=== PATIENT | male | born 1955 | race Caucasian/White ===

== ENCOUNTER 2016-10-08 06:14 | Day surgery (SDC) | payer OTHER ==
[2016-10-07 09:49] VITALS: BMI 58.2
--- NOTE | 2016-10-07 12:25 | HP ---
- Patient Scheduled date of Surgery: 10/08/16 Scheduled Surgical Procedure: Phacoemulsification and cataract extraction with PCIOL Affected Eye: Right Chief Complaint (Indication for surgery): Decreased vision affecting ADLs, Glare when driving at night - Ocular History Other Eye History: Other (lattice degeneration s/p focal retinopexy os, allergic conjunctivitis) Eye Medications: vigamox , ilevro Previous Eye Surgery: focal retinopexy os - Medical History Illnesses: Congestive Heart Failure, Hypertension, Diabetes, Other (CKD, BPH s/ p defibrillator) Current Medications: Ambulatory Orders Aspirin [ASA -] 81 mg PO DAILY 01/02/16 Atorvastatin Ca [Lipitor] 80 mg PO HS 01/02/16 Carvedilol [Coreg -] 37.5 mg PO BID 01/02/16 Cholecalciferol (Vitamin D3) [Vitamin D] 5,000 unit PO DAILY 01/02/16 Glimepiride 2 mg PO DAILY 01/02/16 Insulin Glargine,Hum.rec.anlog [Lantus Solostar PEN (NF)] 30 units SQ ACBK 01/01 Insulin Glargine,Hum.rec.anlog [Lantus Solostar PEN (NF)] 40 units SQ HS Liraglutide [Victoza -] 1.8 mg SQ ACDIN 01/02/16 Oxybutynin Chloride [Ditropan -] 5 mg PO HS 01/02/16 Tamsulosin HCl [Flomax] 0.4 mg PO DAILY 01/02/16 Torsemide [Demadex] 20 mg PO DAILY 01/02/16 Valsartan [Diovan] 160 mg PO DAILY 01/02/16 Torsemide [Demadex] 10 mg PO HS 02/20/16 Bupropion HCl [Wellbutrin Xl] 300 mg PO DAILY 10/07/16 Cyanocobalamin [Vitamin B12 -] 1,000 mcg PO DAILY 10/07/16 Escitalopram Oxalate [Lexapro -] 15 mg PO HS 10/07/16 Methylfolate 15,000 mg PO DAILY 10/07/16 Allergies/Adverse Reactions: Allergies Allergy/AdvReac Type Severity Reaction Status Date / Time Penicillins Allergy Intermediate Rash Verified 02/20/16 14:58 Ocular Examination - Best Corrected Visual Acuity Distance: Right eye: 20/50 Distance: Left eye: 20/30 - External/Slit Lamp Examination Abnormalities: stromal scar with NV - Intraocular Pressure Intraocular Pressure - Right eye: 15 Intraocular Pressure-Left eye: 15 - Lens Lens: 2+ NS - Vitreous/Retina Vitreous/Retina: C:D 0.4 m/v/p wnl - Special Examination M - Right eye: -9.00 M - Left eye: -6.00 K - Right eye: 41.75/42 K - Left eye: 42/42 AL - Right eye: 28.00 AL - Left eye: 27.27 IOL bag: +15.0 dhoya 251 for myopia IOL sulcus: +14.5 d hoya 231 IOL AC: 13.5 d MTA 4uo - Impression Impression: Cataract Right Eye - Plan Plan: Phacoemulsification and cataract extraction - IOL Right eye Post-hospital care will be provided in office on: 10/09/16
[~2016-10-08 06:14] MED LIST: ACETAMINOPHEN 325 MG TABLET (FP) PO PRN; TOBRAMYCIN/DEXAMETHASONE OPHTH. OINTMENT 1 TUBE TP ONE
[2016-10-08] MEDS ORDERED: MOXIFLOXACIN HCL 0.5% OPHTHALMIC 3 ML BOTTLE ONE (06:25)
[2016-10-08] MEDS ORDERED: TROPICAMIDE 1% OPHTH SOLN 15 ML BOTTLE OP SCH (06:45)
[2016-10-08] MEDS ORDERED: DICLOFENAC SODIUM 0.1% OPHTHALMIC 2.5ML BOTTLE OP SCH (06:45)
[2016-10-08] MEDS ORDERED: CIPROFLOXACIN HCL 0.3% OPHTH 2.5ML BOTTLE OP SCH (06:45)
[2016-10-08] MEDS ORDERED: PHENYLEPHRINE 2.5% OPHTH SOLN 15 ML BOTTLE OP SCH (06:45)
[2016-10-08 06:53] VITALS: TEMP 98.2
[2016-10-08] MEDS: TROPICAMIDE 1% OPHTH SOLN 15 ML BOTTLE ONE ×3 (07:00→07:10)
[2016-10-08] MEDS: PHENYLEPHRINE 2.5% OPHTH SOLN 15 ML BOTTLE ONE ×3 (07:00→07:10)
[2016-10-08] MEDS: DICLOFENAC SODIUM 0.1% OPHTHALMIC 2.5ML BOTTLE ONE ×3 (07:00→07:10)
[2016-10-08] MEDS: CIPROFLOXACIN 0.3% EYE DROPS 5 ML BOTTLE ONE ×3 (07:00→07:10)
[2016-10-08] MEDS ORDERED: TOBRAMYCIN/DEXAMETHASONE OPHTH. OINTMENT 1 TUBE ONE (07:19)
[2016-10-08] MEDS ORDERED: EPINEPHrine/PF 1 MG/1 ML (1:1,000) AMPULE ONE (07:19)
[2016-10-08] MEDS ORDERED: LIDOCAINE HCL 2% JELLY (5 ML/TUBE) ONE (07:19)
[2016-10-08] MEDS ORDERED: LIDOCAINE HCL/PF 1% SDV 5ML VIAL ONE (07:19)
[2016-10-08] MEDS ORDERED: POVIDONE-IODINE 5% OPHTHALMIC PREP 30 ML SOLUTION ONE (07:20)
[2016-10-08] MEDS ORDERED: BSS (NA/CA/MG/K) BALANCED SALT SOLUTION OPHTH SOLN 15 ML BOTTLE ONE (07:20)
--- NOTE | 2016-10-08 07:24 | HP ---
History & Physical Update - History History: No Change - Physical Physical: No Change - Assessment Assessment: No Change - Plan Plan: No Change
[2016-10-08] MEDS ORDERED: LIDOCAINE HCL 2% JELLY (5 ML/TUBE) TP ONE (07:35)
[2016-10-08] MEDS ORDERED: MIDAZOLAM HCL 2 MG/2 ML SINGLE DOSE VIAL ONE (07:44)
[2016-10-08] MEDS ORDERED: LIDOCAINE HCL 1% PRESERVATIVE FREE - 30ML VIAL IO ONE (07:55)
[2016-10-08] MEDS ORDERED: CHONDROITIN SU A/HYALUR SOD 1 KIT IO ONE (07:55)
[2016-10-08] MEDS ORDERED: TOBRAMYCIN/DEXAMETHASONE OPHTH. OINTMENT 1 TUBE TP ONE (08:36)
--- NOTE | 2016-10-08 08:46 | OP ---
Ophthalmology Operative Note Pre-Operative Diagnosis: Cataract Affected Eye: Right Operation: Phacoemulsification and cataract extraction with PCIOL Findings: cataract right eye Post-Operative Diagnosis: Same as Pre-op Motion Graphics Artist: None Anesthesia: Topical Specimens Removed: none Estimated blood loss: none Operative Report Dictated: No
[2016-10-08 10:10] VITALS: BP 113/73; PULSE 80
--- NOTE | 2016-10-08 11:09 | OP ---
DATE OF OPERATION: DATE OF DICTATION: 10/08/2016 PREOPERATIVE DIAGNOSIS: Cataract, right eye. POSTOPERATIVE DIAGNOSIS: Cataract, right eye. PROCEDURE: Phacoemulsification and cataract extraction with insertion of posterior chamber intraocular lens, right eye. SURGEON: Ginger Case MD ORE FIELDER: None. ANESTHESIA: Topical. ANESTHESIOLOGIST: Kunal Mondragon MD OPERATIVE PROCEDURE: The patient received viscous lidocaine gel drops in the holding area and was then brought to the operating room and sedated by Anesthesia. The patient was then prepped and draped in the usual fashion so as to expose only the right eye. Ophthalmic Betadine was instilled into the inferior fornix and the lashes were taped out of the surgical field. An eyelid speculum was placed into the right eye. A paracentesis was made in superior clear cornea at the limbus. Nonpreserved lidocaine 1%, 0.5 mL, was injected into the anterior chamber and 1 mL of dilute epinephrine 1:10,000 to improve pupillary dilation. Viscoelastic material was then instilled into the anterior chamber via the paracentesis and a 2.4-mm keratome was then used to create the main incision in temporal clear cornea at the limbus. A continuous curvilinear capsulorrhexis was performed using a cystotome and Utrata forceps. Hydrodissection of the lens cortex was performed using BSS on a cannula until the nucleus was noted to be freely rotating. The phacoemulsification tip was inserted via the main wound and used to sculpt 2 perpendicular grooves into lens nucleus. Viscoat was injected into the grooves and a nucleus cracker was used to crack the lens into 4 quadrants. Each quadrant was lifted out of the capsule into the iris plane and individually phacoemulsified. The remaining cortical material was then aspirated using the irrigation and aspiration port. The capsular bag was inflated using Provisc and a preloaded Hoya lens model 251, power +15.0 diopters, was injected into the capsular bag and centered using a Sinskey hook. The residual viscoelastic material was removed from the anterior chamber using irrigation and aspiration. The wound edges were hydrated using BSS. The wound was tested for leakage. It was found to be watertight. Therefore, TobraDex ointment was placed in the eye and the speculum was removed from the eye. The eyelid was closed. A sterile dressing and shield were placed over the eye and the patient was taken to the recovery room in stable condition. Told to follow up in 1 day. GINGER CASE M.D. KARAN/[id number]
== END 2016-10-08 10:00 | disposition home or self-care (01) ==
LOC: JASU-SURG 06:14
PROVIDERS: ATTEND Ophthalmology
PROC: 08RJ3JZ Replacement of Right Lens with Synthetic Substitute, Percutaneous Approach (ICD-10-PCS; principal; 2016-10-08 07:30)
DX: H26.9 Unspecified cataract (principal)

== ENCOUNTER 2020-05-16 04:20 | Day surgery (SDC) | payer OTHER ==
--- OUTSIDE RECORDS SUMMARY | 2020-05-01 08:50 | XMS ---
:1955 Author Organization [facility] Care Team Providers Name Role Phone Lyndon Maldonado MD Unavailable Unavailable Lyndon Maldonado MD Unavailable Unavailable Lyndon Maldonado MD Unavailable Unavailable Lyndon Maldonado MD Unavailable Unavailable Lyndon Maldonado MD Unavailable Unavailable Lyndon Maldonado MD Unavailable Unavailable Lyndon Maldonado MD Unavailable Unavailable Lyndon Maldonado MD Unavailable Unavailable Nick Oglesby Unavailable [phone] GUZMAN BRAR Unavailable Unavailable Re-disclosure Warning The records that you are about to access may contain information from federally- assisted alcohol or drug abuse programs. If such information is present, then the following federally mandated warning applies: This information has been disclosed to you from records protected by federal confidentiality rules (42 CFR part 2). The federal rules prohibit you from making any further disclosure of this information unless further disclosure is expressly permitted by the written consent of the person to whom it pertains or as otherwise permitted by 42 CFR part 2. A general authorization for the release of medical or other information is NOT sufficient for this purpose. The Federal rules restrict any use of the information to criminally investigate or prosecute any alcohol or drug abuse patient.The records that you are about to access may contain highly sensitive health information, the redisclosure of which is protected by Article 27-F of the [facility] Public Health law. If you continue you may haveaccess to information: Regarding HIV / AIDS; Provided by facilities licensed or operated by the [facility] Office of Mental Health; or Provided by the [facility] Office for People With Developmental Disabilities. If such information is present, then the following [facility] mandated warning applies: This information has been disclosed to you from confidential records which are protected by state law. State law prohibits you from making any further disclosure of this information without the specific written consent of the person to whom it pertains, or as otherwise permitted by law. Any unauthorized further disclosure in violation of state law may result in a fine or custodial sentence or both. A general authorization for the release of medical or other information is NOT sufficient authorization for further disclosure. Allergies and Adverse Reactions Type Description Substance Reaction Status Data Source(s ) No Information No Information No Information eC W1 ([facility]) No Information No Information No Information eC W1 ([facility]) Encounters Encounter Providers Location Date Indications Data Source(s ) [address] 01/04/2020 eCW1 ([facility] 12:00:00 [place] [facility]ical [facility] AM EDT Practice PC) [address] 11/07/2019 eCW1 ([facility] 12:00:00 [place] Me dical [facility] AM EDT Practice PC) [address] 08/17/2019 eCW1 ([facility] 12:00:00 [place] Me dical [facility] AM EST Practice PC) [address] 08/03/2019 eCW1 ([facility] Office [facility] 12:00:00 [place] Me dical S[facility] AM EST Practice PC) [address] 05/18/2019 eCW1 ([facility] 12:00:00 [place] Me [facility]ical [facility] AM EDT Practice PC) [address] 05/02/2019 eCW1 ([facility] [address] [facility] 12:00:00 [place] Me [facility]ical [facility] AM EDT Practice PC) [address] 03/24/2019 eCW1 ([facility] 12:00:00 [place] Me dical [facility] AM EDT Practice PC) [address] 02/06/2019 eCW1 ([facility] S[facility] 12:00:00 [place] Me dical [facility] AM EDT Practice PC) Inpatient Attender: 01/23/2019 SEE 09 [place] JERONIMOORLINOliva, 08:51:00 [facility] AM EDT - Care Melany oration r: ZONIA, 01/24/2019 JONATHANReferre 10:08:00 r: ZONIA, PM EDT GUZMAN SEE 09 Inpatient Attender: ZONIA, 01/23/2019 [facility] AM EDT [facility] Care GIANNONE, Corporation JONATHANReferrer: GUZMAN BRAR SEE 09 Outpatient Attender: ZONIA, 01/17/2019 E66.01 Z01.818 [facility] 10:47[facility]00 AM EDT E11.9 I10 [facility] ZONIA, Care Corporati on JONATHANReferrer: GUZMAN BRAR E66.01 Z01.818 E11.9 I10 Inpatient Attender: ZONIA, 01/09/2019 SEE 09 [facility] 09:53:00 AM EDT He alth Care GIANNONE, Corporation JONATHANReferrer: GUZMAN BRAR SEE 09 [address] 12/30/2018 eCW1 (S aint Office [facility] 12:00:00 AM EDT [facility]) Attender: [facility] 12/28/2018 LAID [place] ([facility] 12:47:00 PM EDT [facility] 12/28/2018 [place]) 12:47:00 PM EDT Outpatient Attender: H 12/28/2018 [facility] Lyndon Maldonado 12:47:00 PM EDT [facility] MDAdmitter: Lyndon Maldonado MDReferrer: Lyndon Maldonado MD [address] 12/28/2018 eCW1 (S aint Office [facility] 12:00:00 AM EDT [facility]) [address] 12/26/2018 eCW1 (S aint Office [facility] 12:00:00 AM [facility]) [address] 11/24/2018 eCW1 (S aint Office [facility] 12:00:00 AM [facility]) [address] 10/10/2018 eCW1 (S aint Office [facility] 12:00:00 AM [facility] PC) [address] 03/31/2018 eCW1 (S aint Office [facility] 12:00:00 AM [facility]) [address] 03/17/2018 eCW1 (S aint Office [facility] 12:00:00 AM [facility]) [address] 02/08/2018 eCW1 (S aint Office [facility] 12:00:00 AM [facility]) [address] 12/02/2017 eCW1 (S aint Office [facility] 12:00:00 AM [facility]) [address] 11/23/2017 eCW1 (S aint Office [facility] 12:00:00 AM [facility]) [address] 08/02/2017 eCW1 (S aint Office [facility] 12:00:00 AM [facility]) [address] 07/23/2017 eCW1 (S aint Office [facility] 12:00:00 AM [facility]) [address] 02/11/2017 eCW1 (S aint Office [facility] 12:00:00 AM [facility]) [address] 02/13/2016 eCW1 (S aint Office [facility] 12:00:00 AM [facility]) [address] 10/07/2015 eCW1 (S aint Office [facility] 12:00:00 AM [facility]) [address] 02/28/2015 eCW1 (S aint Office [facility] 12:00:00 AM [facility]) [address] 10/30/2014 eCW1 (S aint Office [facility] 12:00:00 AM [facility]) [address] 07/10/2014 eCW1 (S aint Office [facility] 12:00:00 AM [facility]) [address] 11/14/2013 eCW1 (S nt Office [facility] 12:00:00 AM [facility]) [address] 10/05/2013 eCW1 (S nt Office [facility] 12:00:00 AM [facility]) [address] 08/03/2013 eCW1 (S aint Office [facility] 12:00:00 AM [facility]) [address] 07/04/2013 eCW1 (S nt Office [facility] 12:00:00 AM [facility]) [address] 06/26/2013 eCW1 (S nt Office [facility] 12:00:00 AM [facility]) [address] 06/15/2013 eCW1 (S nt Office [facility] 12:00:00 AM [facility]) [address] 03/23/2013 eCW1 (S nt Office [facility] 12:00:00 AM [facility]) [address] 03/07/2013 eCW1 (S aint Office [facility] 12:00:00 AM [facility]) EVAN Mirandas [address] 02/21/2013 eCW1 ([address] [facility] 12:00:00 AM [facility]) ZSEVENWMA [place] [address] 02/02/2013 eCW1 ([facility] 12:00:00 AM [facility]) ZZZWMA [place] [address] 01/24/2013 eCW1 ([facility] 12:00:00 AM [facility]) ZSEVENWMA [place] [address] 01/20/2013 eCW1 ([facility] 12:00:00 AM [facility]) ZSEVENWMA [place] [address] 01/17/2013 eCW1 ([facility] S[facility]MP 12:00:00 AM [facility]) ZSEVENWMA [place] [address] 01/05/2013 eCW1 ([facility]MP 12:00:00 AM [facility]) ZSEVENWMA [place] [address] 12/22/2012 eCW1 ([facility] 12:00:00 AM [facility]) ZSEVENWMA [place] [address] 12/20/2012 eCW1 ([facility] 12:00:00 AM [facility]) ZSEVENWMA [place] [address] 12/13/2012 eCW1 ([facility] 12:00:00 AM [facility]) [place] [address] 10/17/2012 eCW1 ([facility] 12:00:00 AM EDT [facility]) Immunizations Vaccine Date Status Description Data Source(s) No Known Immunizations completed eCW1 ([facility]) No Known Immunizations completed eCW1 ([facility]) Medications Medication Brand Start Product Dose Route Administrative Pharmacy [facility] Indications Reaction Description Data Name Date Form Instructions Instructions Source(s) Oxybutynin Oxybut [place] chloride 5 ynin 2018 [place] Oral Chlori 12:00: Health Tablet de [5 00 AM Care Oxybutynin mg EDT Corporati o Chloride [5 Tablet n mg Tablet]: ]: 1 1 Tablet Tablet Oral DAILY Oral DAILY Tamsulosin 04/22/ complet We [place] [0.4 mg]: 1 546 2017 [facility] Tablet Oral 12:00: Health DAILY 00 AM Care EDT Corporatio n carvedilol Carved 04/22/ complet [place] 25 MG Oral ilol 2017 [facility] Tablet [25 mg 12:00: Health Carvedilol Tablet 00 AM Care [25 mg ]: EDT Corporatio Tablet]: 37.5 n 37.5 MG MG Oral 2 Oral 2 TIMES A DAY TIMES A DAY torsemide Torsem 04/22/ complet Sunny tcheste 20 MG Oral solange 2017 [facility] Tablet [20 mg 12:00: Health Torsemide Tablet 00 AM Care [20 mg ]: 1 EDT Corporatio Tablet]: 1 Tablet n Tablet Oral Oral DAILY DAILY Losartan Losart 04/22/ complet [facility] Potassium an 2017 [facility] 100 MG Oral [100 12:00: Health Tablet mg 00 AM Care Losartan Tablet EDT Corporati o [100 mg ]: 100 n Tablet]: MG 100 MG Oral Oral DAILY DAILY Multiple 04/22/ complet [facility] Vitamins 532 2017 [facility] (Multivitam 12:00: Health in) 00 AM Care [Tablet]: 1 EDT Corporat io Tablet Oral n DAILY Tresiba 04/22/ complet [facility] heste FlexTouch 843 2017 [facility] U-200 [200 12:00: Health unit/mL (3 00 AM Care mL) Insulin EDT Corporat io Pen]: 70 n Unit Subcutaneou s DAILY IN MORNING Cholecalcif Cholec 04/22/ complet [place] linda 5000 alcife 2017 [facility] UNT Oral rol 12:00: Health Tablet (Vitam 00 AM Care Cholecalcif in D3) EDT Corpor atio linda [5,000 n (Vitamin unit D3) [5,000 Tablet unit ]: 1 Tablet]: 1 Tablet Tablet Oral Oral DAILY DAILY atorvastati Atorva 04/22/ complet W est[place]ste n 80 MG statin 2017 [facility] Oral Tablet [80 mg 12:00: Heal th Atorvastati Tablet 00 AM Care n [80 mg ]: 1 EDT Corporatio Tablet]: 1 Tablet n Tablet Oral Oral DAILY DAILY Aspirin 81 Aspir- 04/22/ complet We stcheste MG Delayed Low 2018 ed r [facility] Release (Aspir 12:00: Health Oral Tablet in) 00 AM Care Aspir-Low [81 EDT Corporatio (Aspirin) mg]: 1 n [81 mg]: 1 Capsul Capsule e Oral Oral DAILY DAILY Discharge complet [facility] Medications ed [facility] are Health unavailable Care . Corporatio n atorvastati Atorva active 1 tablet eCW1 n 80 MG statin (Saint Oral Tablet Calciu Yovani s Atorvastati m 80 Medical n Calcium MG Practice 80 MG PC) Omeprazole Omepra complet [place] 40 MG zole ed [facility] Delayed [40 Health Release mg]: 1 Care Oral Capsul Corporatio Capsule e Oral n Omeprazole DAILY [40 mg]: 1 IN Capsule MORNIN Oral DAILY G IN MORNING carvedilol Carved active 2 tablets eCW1 25 MG Oral ilol (Saint Tablet 25 MG [facility] Carvedilol Medical 25 MG Practice PC) 3 ML Victoz suspend 0.2 ml eCW1 liraglutide a 18 ed (Saint 6 MG/ML Pen MG/3ML [facility] Injector Medical [Victoza] Practice Victoza 18 PC) MG/3ML 24 HR Buprop complet [facility] e Bupropion ion [facility] Hydrochlori HCl Health de 300 MG [300 Care Extended mg]: 1 Corporati o Release Tablet n Oral Tablet Oral Bupropion DAILY HCl [300 mg]: 1 Tablet Oral DAILY Escitalopra Escita active 1 / tab let eCW1 m 20 MG lopram (Saint Oral Tablet Oxalat [facility] Escitalopra e 20 Medical m Oxalate MG Practice 20 MG PC) Escitalopra Escita complet Sunny t[place]ste m 20 MG lopram ed [facility] Oral Tablet [20 mg Health Escitalopra Tablet Care m [20 mg ]: 30 Corporatio Tablet]: 30 MG n MG Oral Oral DAILY DAILY - UNK active 1 tablet eCW1 ([facility]) Flomax 0.4 UNK active 1 eCW1 mg ([facility]) Losartan Losart active 1 tablet eCW 1 Potassium an (Saint 100 MG Oral Potass [facility] Tablet ium Medical 100 MG Practice PC) glimepiride Glimep suspend 1 tablet eCW1 1 MG Oral iride ed with (Saint Tablet 1 MG breakfast or Zian hs Glimepiride the first Med ical 1 MG main meal of Practic e the day ) carvedilol Carved active 2 tablets eCW1 25 MG Oral ilol (Saint Tablet 25 MG [place] Carvedilol Medical 25 MG Practice ) torsemide Torsem suspend as directe d eCW1 20 MG Oral solange 20 ed (Saint Tablet MG Sharon Torsemide Medical 20 MG Practice ) 24 HR BuPROP active 1 tablet in eCW 1 Bupropion ion the morning (Sa int Hydrochlori HCl ER Yovani s de 300 MG (XL) Medical Extended 300 MG Practice Release ) Oral Tablet BuPROPion HCl ER (XL) 300 MG Omeprazole Omepra active 1 capsule eCW1 40 MG zole (Saint Delayed 40 MG Sharon Release Medical Oral Practice Capsule ) Lantus 21 UNK suspend eCW1 units ed ([facility]) Oxybutynin Oxybut active 1 tablet e CW1 chloride 5 ynin (Saint MG Oral Chlori Sharon Tablet de 5 Medical Oxybutynin MG Practice Chloride 5 ) MG Insurance Providers Payer name Policy type Policy ID Covered Covered constitution party's Policy P bessy / Coverage constitution party ID relationship to Ball Inf ormation type ball HUMANA O [id number] 01 [id number] M [id number] MEDICARE [id number] SP [id number] HUMANA GOLD [id number] S [id number] PLUS PLAN MEDICARE [id number] S [id number] A Problems, Conditions, and Diagnoses Code Display Name Description Problem Type Effective Data Sour ce(s) Dates I10 [id number] Essential Problem 03/24/2019 eCW1 ([facility] hypertension 12:00:00 AM [facility]) G47.33 [id number] ALONSO (obstructive Problem 12/26/2018 eCW1 (Sa int sleep apnea) 12:00:00 AM [facility]) I42.9 Cardiomyopathy Cardiomyopathy, Problem 12/26/2018 eCW1 (Saint unspecified type 12:00:00 AM [facility]) I50.20 Systolic heart Unspecified systolic Problem 03/17/2018 eCW1 (Saint failure (congestive) heart 12:00:00 AM Zain hs failure EDT Medical Practice PC) Z45.02 [id number] ICD (implantable Problem 03/17/2018 eCW1 (Sa int cardioverter-defibri 12:00:00 AM Indra ephs llator) battery EDT Medical depletion Practice PC) 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, 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 12:00:00 AM Yovani s EDT Medical Practice PC) E66.09 [id number] Other obesity due to Problem 02/11/2017 eCW1 (Saint excess calories 12:00:00 AM Sharon EDT Medical Practice PC) 414.01 Atherosclerosis of Coronary Problem 10/05/2013 eCW1 ( coronary artery atherosclerosis of 12:00:00 AM Sharon chitina coronary EDT Medical artery Practice PC) 272.4 Hyperlipidemia Other and Problem 06/27/2013 eCW1 (Chivo t unspecified 12:00:00 AM [place] hyperlipidemia EST Medical Practice PC) 585.3 Chronic kidney Chronic kidney Problem 01/17/2013 eCW1 ( Saint disease stage 3 disease, Stage III 12:00:00 AM [place] (moderate) EDT Medical Practice PC) 428.1 Left heart failure Left heart failure Problem 3 eCW1 (Saint 12:00:00 AM Sharon EDT Medical Practice PC) 250.00 Type II diabetes Diabetes mellitus Problem 01/17/2013 e CW1 (Saint mellitus without without mention of 12:00:00 AM Sharon complication complication, type EDT Medi darling II or unspecified Practic e PC) type, not stated as uncontrolled 428.0 Congestive heart Congestive heart Problem 12/14/2012 eC W1 (Saint failure failure, unspecified 12:00:00 AM Indra ephs EDT Medical Practice PC) 250.01 Type I diabetes Diabetes mellitus Problem 12/14/2012 eC W1 (Saint mellitus without without mention of 12:00:00 AM Sharon complication complication, type I EDT Me dical [juvenile type], not Prac pilo PC) stated as uncontrolled 425.4 Primary Other primary Problem 12/14/2012 eCW1 ( cardiomyopathy cardiomyopathies 12:00:00 AM Indra ephs EDT Medical Practice PC) Z84.89 Family history of FAMILY HISTORY OF Diagnosis 01/24/2019 [place] other specified OTHER SPECIFIED 10:08:00 PM [place] conditions CONDITIONS EDT Care Stat Z83.3 Family history of FAMILY HISTORY OF Diagnosis 01/24/2019 [place] diabetes mellitus DIABETES MELLITUS 10:08:00 PM [facility] Stat Z88.8 Allergy status to ALLERGY STATUS TO Diagnosis 01/24/2019 [place] other drugs, OTH DRUG/MEDS/BIOL 10:08:[address] [employer] [facility] [employer] medicaments and SUBST STATUS EDT [facility] biological Stat substances status Z88.0 Allergy status to ALLERGY STATUS TO Diagnosis 01/24/2019 [place] penicillin PENICILLIN 10:08:00 PM [facility] [employer] [facility] Stat Z79.82 residential (current) NURSING HOME (CURRENT) Diagnosis [place] use of aspirin USE OF ASPIRIN 10:08:00 PM [facility] [employer] [facility] Stat Z79.4 residential (current) NURSING HOME (CURRENT) Diagnosis [place] use of insulin USE OF INSULIN 10:08:00 PM [facility] [employer] F32.9 Major depressive MAJOR DEPRESSIVE Diagnosis 01/24/2019 [facility] disorder, single DISORDER, SINGLE 10:08:00 PM [employer] episode, EPISODE, UNSPECIFIED EDT Care unspecified Corporation E78.5 Hyperlipidemia, HYPERLIPIDEMIA, Diagnosis 01/24/2019 [place] unspecified UNSPECIFIED 10:08:00 PM [facility] EDT Care Stat K22.70 Forde's esophagus FORDE'S ESOPHAGUS Diagnosis [place] without dysplasia WITHOUT DYSPLASIA 10:08:00 PM [facility] [employer] [facility] Stat N40.0 Benign prostatic BENIGN PROSTATIC Diagnosis 01/24/2019 [facility] hyperplasia without HYPERPLASIA WITHOUT 10:08:0 0 PM [facility] lower urinary tract LOWER URINRY TRACT EDT Care symptoms [employer] N18.9 Chronic kidney CHRONIC KIDNEY Diagnosis 01/24/2019 [facility] disease, DISEASE, UNSPECIFIED 10:08:00 PM [employer] [facility] unspecified EDT Care Stat E11.51 Type 2 diabetes TYPE 2 DIABETES W Diagnosis 01/24/2019 [facility] mellitus with DIABETIC PERIPHERAL 10:08:00 PM [employer] diabetic peripheral ANGIOPATH W/O EDT Ca re angiopathy without GANGRENE Corpor ation gangrene I11.0 Hypertensive heart HYPERTENSIVE HEART Diagnosis 9 [place] disease with heart DISEASE WITH HEART 10:08:00 PM [facility] FAILURE EDT Care Corporation K21.9 Gastro-esophageal GASTRO-ESOPHAGEAL Diagnosis 01/24/2019 [place] reflux disease REFLUX DISEASE 10:08:00 PM [facility] Health without esophagitis WITHOUT ESOPHAGITIS EDT Care Stat G47.33 Obstructive sleep OBSTRUCTIVE SLEEP Diagnosis 01/24/2019 [place] apnea (adult) APNEA (ADULT) 10:08:00 PM [facility] (pediatric) (PEDIATRIC) EDT Care Stat R16.0 Hepatomegaly, not HEPATOMEGALY, NOT Diagnosis 01/24/2019 [place] elsewhere ELSEWHERE CLASSIFIED 10:08:00 PM [facility] classified EDT Care Corporation Z68.43 Body mass index BODY MASS INDEX Diagnosis 01/24/2019 [place] (BMI) 50-59.9 , (BMI) 50-59.9, ADULT 10:08:00 P M [facility] adult EDT Care Corporation K42.9 Umbilical hernia UMBILICAL HERNIA Diagnosis 01/24/2019 [place] without obstruction WITHOUT OBSTRUCTION 10:08:0 0 PM [facility] or gangrene OR GANGRENE EDT Care Stat I50.22 Chronic systolic CHRONIC SYSTOLIC Diagnosis 01/24/2019 [facility] (congestive) heart (CONGESTIVE) HEART 10:08:00 PM [facility] failure FAILURE EDT Care Corporation I13.0 Hypertensive heart HYP HRT and CHR KDNY Diagnosis 019 [place] and chronic kidney DIS W HRT FAIL AND 10:08:00 PM [facility] disease with heart STG 1-4/UNSP CHR EDT Care failure and stage 1 KDNY [employer] ration through stage 4 chronic kidney disease, or unspecified chronic kidney disease E66.01 Morbid (severe) MORBID (SEVERE) Diagnosis 01/23/2019 [place] obesity due to OBESITY DUE TO 08:51:00 AM Count y Health excess calories EXCESS CALORIES EDT Care Stat I10 Essential (primary) ESSENTIAL (PRIMARY) Diagnosis 019 [place] hypertension HYPERTENSION 10:47:00 AM [facility] EDT Care Stat G47.30 Sleep apnea, SLEEP APNEA, Diagnosis 01/17/2019 [place] unspecified UNSPECIFIED 10:47:00 AM [facility] [employer] Care Stat E11.9 Type 2 diabetes TYPE 2 DIABETES Diagnosis 01/17/2019 [place] mellitus without MELLITUS WITHOUT 10:47:00 AM Lyndsey blancas Health complications COMPLICATIONS EDT Care Stat T58.91XA Toxic effect of TOXIC EFFECT OF CARB Diagnosis 01/17/2019 [place] carbon monoxide MONX FROM UNSP 10:47:00 AM Coun Health from unspecified SOURCE, ACC, INIT EDT C are source, accidental Corpor ation (unintentional), initial encounter Z01.818 Encounter for other ENCOUNTER FOR OTHER Diagnosis [address] [place] [address] preprocedural PREPROCEDURAL 10:47:00 AM [facility] examination EXAMINATION EDT [employer] I42.9 Cardiomyopathy, CARDIOMYOPATHY, Diagnosis 12/28/2018 Chivo Herrera unspecified UNSPECIFIED 12:47:[address] EDT Surgeries/Procedures Procedure Description Date Indications Data Source(s) ECG ROUTINE ECG 08/17/2019 eCW1 ([facility] W/LEAST 12 LDS W/I&R 12:00:00 AM Medical Practice EST PC) No Known procedures No Known procedures e CW1 ([facility] Practic e PC) Results ID Date Data Source [id number] 01/24/2019 10:08:36 PM EDT [facility] [id number] Corporation Name Value Range Interpretation Description Data Sup porting Code Source(s) Document(s ) Esophagus (PACSIMAGE <td> 01/24/2019 [place] Non Barium 09:00</td><td> [facility] ) Esophagus Non Health Care Final Result Barium Swallow Stat Name: </td><td><paragrap alexis LEWIS MRN: styleCode="Italics [id number] Sex: ">(PACSIMAGE M : 1955 )</paragraph>
Location: M
Final Admitting Result Physician:

GUZMAN Name: ZONIA LEWIS Requesting
MRN: Physician: [id number] Sex: M FRANSISCO THOMAS
Exam: : 1955 ESOPHAGUS Location: M SWALLOW
NON-BARIUM Admitting 01/24/2019 Physician: 09:45 GUZMAN BRAR CLINICAL
INFORMATION: Requesting Postop Physician: FRANSISCO THOMAS sleeve

TECHNIQUE: A Exam: ESOPHAGUS water-solubl SWALLOW NON-BARIUM e contrast 01/24/2019 09:45 esophagram was

performed. CLINICAL The patient INFORMATION: was given Postop gastric Omnipaque sleeve 300 x2

contrast to TECHNIQUE: A drink under water-soluble fluoroscopi contrast c esophagram was observation. performed. Fluoroscopic
The spots and patient was given overhead Omnipaque 300 x2 images contrast to drink were under obtained.
fluoroscopic COMPARISON: observation. No priors Fluoroscopic spots are and overhead available. images FINDINGS:
were A criminal lawyer obtained. radiograph

of the chest COMPARISON: No demonstrates priors are clear lungs. available. The

cardiomedias FINDINGS: tinal

A silhouette criminal lawyer radiograph is of the chest unremarkable demonstrates clear . The lungs. The visualized
osseous cardiomediastinal structures silhouette is are unremarkable. The unremarkable visualized . A single
lead pacing osseous structures wire are unremarkable. overlying A single lead right pacing wire ventricle
visualized. overlying right The ventricle esophagus is visualized. normal in

contour and The esophagus is caliber. No normal in contour narrowing, and caliber. No outpouching narrowing, or filling
defect is outpouching or identified. filling defect is Normal identified. Normal esophageal esophageal motility was
observed motility was with free observed with free flow of flow of contrast contrast from the esophagus from the
esophagus through the through the gastroesophageal gastroesopha junction into the geal stomach. There junction
into the is no hiatal stomach. hernia. There is

No no hiatal extraluminal hernia. contrast was seen No either during the extraluminal examination contrast was
are seen either on the post during the examination examination radiographs to are on the suggest an post esophageal examination
leak radiographs or perforation. to suggest

an IMPRESSION: esophageal
leak or Status post perforation. gastric sleeve without immediate IMPRESSION: postoperative Status post complication. gastric
No sleeve evidence of without extraluminal immediate contrast seen postoperativ either during the e examination complication
are . No on the post evidence of examination extraluminal radiographs to contrast suggest an seen either esophageal during the
leak examination or perforation. are on the post

<br examination /> Resident radiographs Radiologist: Juan to suggest Quirino BRANCH Resident an Radiologist esophageal
leak or Attending perforation. Radiologist: Karrie Campos MD Resident
Radiologist: Finalizing Juan Win Radiologist: Karrie BRANCH Resident Andres BRANCH Radiologist
Attending Transcribed Date: Radiologist: 01/24/2019 10:59 Karrie
Andres BRANCH Finalized Date: Finalizing 01/24/2019 11:17 Radiologist: Karrie

</td> Andres BRANCH Transcribed Date: 01/24/2019 10:59 Finalized Date: 01/24/2019 11:17 ID Date Data Source [id number] 01/24/2019 10:08:36 PM EDT [facility] [id number] Corporation Name Value Range Interpretation Description Data Sup porting Code Source(s) Document(s ) Erythrocytes 3.57 m/mm3 4.70-6. <td> [place] [#/volume] in 01/24/2019 [facility] Blood m/mm3 01:22</td><t Health Care d> RBC Corporation </td><td><pa ragraph styleCode="B old"> 3.57 L </paragraph>
(4.70-6.10) m/mm3 </td> Leukocytes 10.9 k/mm3 4.8-10. <td> [place] [#/volume] in 8 k/mm3 01/24/2019 [facility] Blood by 01:22</td><t Health Care Automated count d> WBC [employer] </td><td><pa ragraph styleCode="B old"> 10.9 H </paragraph>
(4.8-10.8) k/mm3 </td> Hematocrit 33.2 % 40.8-46 <td> [place] [Volume .9 % 01/24/2019 [place] Fraction] of 01:22</td><[facility] Care Blood by d> HCT [employer] Automated count </td><td><pa ragraph styleCode="B old"> 33.2 L </paragraph>
(40.8-46.9) % </td> Erythrocyte 13.4 % 11.5-14 <td> [place] distribution .5 % 01/24/2019 [facility] width [Entitic 01:22</td><t Health Care volume] by d> RDW [employer] Automated count </td><td> 13.4
(11.5-14.5) % </td> Erythrocyte 31.0 % 32.0-36 <td> [place] mean .0 % 01/24/2019 [facility] corpuscular 01:22</td><t Health Care hemoglobin d> MCHC Corporation concentration </td><td><pa [Mass/volume] ragraph in Blood from styleCode="B Fetus by old"> Automated count 31.0 L </paragraph>
(32.0-36.0) % </td> Hemoglobin 10.3 g/dL 14.0-18 <td> [place] [Mass/volume] .0 g/dL 01/24/2019 [facility] in Blood 01:22</td><t Health Care d> HGB [employer] </td><td><pa ragraph styleCode="B old"> 10.3 L </paragraph>
(14.0-18.0) g/dL </td> Erythrocyte 93.0 fL 80.0-94 <td> [place] mean .0 fL 01/24/2019 [facility] corpuscular 01:22</td><t Health Care volume [Entitic d> MCV [employer] volume] by </td><td> Automated count 93.0
(80.0-94.0) fL </td> Erythrocyte 28.9 pg 27.0-31 <td> [place] mean .5 pg 01/24/2019 [facility] corpuscular 01:22</td><t Health Care hemoglobin d> MCH Stat [Entitic mass] </td><td> by Automated count 28.9
(27.0-31.5) pg </td> Chloride 107 mEq/L 98-107 <td> [place] [Moles/volume] mEq/L 01/24/2019 [facility] in Serum or 01:22</td><t Health Care Plasma d> Chloride Corporation </td><td> 107
(98-107) mEq/L </td> Platelet mean 11.5 fL 9.8-12. <td> [place] volume [Entitic 8 fL 01/24/2019 [facility] volume] in 01:22</td><t Health Care Blood by d> MPV Stat Automated count </td><td> 11.5
(9.8-12.8) fL </td> Glucose 92 mg/dL 70-105 <td> [place] [Mass/volume] mg/dL 01/24/2019 [facility] in Blood 01:22</td><t Health Care d> Stat Glucose-Seru m </td><td> 92
(70-105) mg/dL </td> Potassium 3.8 mEq/L 3.5-5.1 <td> [place] [Moles/volume] mEq/L 01/24/2019 [facility] in Serum or 01:22</td><t Health Care Plasma d> Stat Potassium-Se rum </td><td> 3.8
(3.5-5.1) mEq/L </td> Sodium 139 mEq/L 135-145 <td> [place] [Moles/volume] mEq/L 01/24/2019 [facility] in Serum or 01:22</td><t Health Care Plasma d> Stat Sodium-Serum </td><td> 139
(135-145) mEq/L </td> Platelets 172 k/mm3 160-410 <td> [place] [#/volume] in k/mm3 01/24/2019 [facility] Blood by 01:22</td><t Health Care Automated count d> Platelet Corporation Count </td><td> 172
(160-410) k/mm3 </td> Carbon dioxide, 24 mEq/L 22-30 <td> [place] total mEq/L 01/24/2019 [facility] [Moles/volume] 01:22</td><t Health Care in Serum or d> CO2 Corporation Plasma </td><td> 24
(22-30) mEq/L </td> Creatinine 1.04 mg/dL 0.72-1. <td> [place] [Moles/volume] 25 01/24/2019 [facility] in Serum or mg/dL 01:22</td><t Health Care Plasma d> Corporation Creatinine. </td><td> 1.04
(0.72-1.25) mg/dL </td> Anion gap in 8 mEq/L 7-13 <td> [place] Serum or Plasma mEq/L 01/24/2019 [facility] 01:22</td><t Health Care d> Anion Gap Corporation </td><td> 8
(7-13) mEq/L </td> Lipemic index No Lipemia <td> [place] of Serum or 01/24/2019 [facility] Plasma 01:22</td><t Health Care d> Lipemia Corporation Index </td><td> No Lipemia
</td> Calcium 8.7 mg/dL 8.6-10. <td> [place] [Mass/volume] 2 mg/dL 01/24/2019 [facility] Blood 01:22</td><t Health Care d> Calcium Corporation </td><td> 8.7
(8.6-10.2) mg/dL </td> Hemolysis index No <td> [place] of Serum or Hemolysis 01/24/2019 [facility] Plasma 01:22</td><t Health Care d> Hemolysis Corporation Index </td><td> No Hemolysis
</td> Urea nitrogen 19 mg/dL 6-22 <td> [place] [Mass/volume] mg/dL 01/24/2019 [facility] Blood 01:22</td><t Health Care d> BUN Corporation </td><td> 19
(6-22) mg/dL </td> Glucose 132 mg/dL 70-105 <td> [place] [Mass/volume] mg/dL 01/24/2019 [facility] in Capillary 17:17</td><t Health Care blood by d> Glucose - Corporation Glucometer Finger Stick </td><td><p aragraph styleCode="B old"> 132 H </paragraph>
(70-105) mg/dL </td> Phosphate 2.1 mg/dL 2.3-4.7 <td> [place] [Mass/volume] mg/dL 01/24/2019 [facility] in Serum or 01:22</td><t Health Care Plasma d> Inorganic Corporation Phosphorus </td><td><pa ragraph styleCode="B old"> 2.1 L </paragraph>
(2.3-4.7) mg/dL </td> Icteric index Not Icteric <td> [facility] Serum or 01/24/2019 [facility] Plasma 01:22</td><t Health Care d> Icteric Corporation Index </td><td> Not Icteric
</td> Magnesium 2.0 mg/dL 1.6-2.6 <td> [place] [Mass/volume] mg/dL 01/24/2019 [facility] in Serum or 01:22</td><t Health Care Plasma d> Magnesium Corporation Level </td><td> 2.0
(1.6-2.6) mg/dL </td> Procedure Social History Code Duration Value Status Description Data Source(s ) Smoking Unknown if ever completed Unknown if ever [facility] Smoking Unknown if ever completed Unknown if ever [facility] Smoking Unknown if ever completed Unknown if ever eCW1 ([place] [facility]) Smoking Never smoker completed Never smoker [facility] Vital Signs ID Date Data Source UNK Name Value Range Interpretation Code Description Data Source(s) Diastolic blood 85 mm[Hg] 85 mm[Hg] eCW1 ([facility]) Systolic blood 135 mm[Hg] 135 mm[Hg] eCW1 ([facility] t pressure [facility]) Heart rate 59 /min 59 /min eCW1 ([facility]) Body mass index 41.15 kg/m2 41.15 kg/m2 eCW1 (S aint (BMI) [Ratio] [facility]) Body weight 255 [lb_av] 255 [lb_av] eCW1 ([facility]) Body height 66 [in_us] 66 [in_us] eCW1 ([facility]) Diastolic blood 74 {} Normal (applies to 74 {} [place] pressure non-numeric results) [facility] on Systolic blood 124 {} Normal (applies to 124 {} [place] pressure non-numeric results) [facility] on First Respiration 19.0000 {} Normal (applies to 19.0000 {} [place] rate Set non-numeric results) [facility] on Heart rate 70.0000 {} Normal (applies to 70.0000 {} [place] non-numeric results) [facility] on Body temperature 98.3000 {} Normal (applies to 98.3000 {} [place] non-numeric results) [facility] on Diastolic blood 72 {} Normal (applies to 72 {} [place] pressure non-numeric results) [facility] on Systolic blood 131 {} Normal (applies to 131 {} [place] pressure non-numeric results) [facility] Corpor[facility] on First Respiration 19.0000 {} Normal (applies to 19.0000 {} [place] rate Set non-numeric results) [facility] Heart rate 63.0000 {} Normal (applies to 63.0000 {} [place] non-numeric results) [facility] on Body temperature 97.4000 {} Normal (applies to 97.4000 {} [place] non-numeric results) [facility] on wt - obtain Normal (applies to {} [place] non-numeric results) [facility] on weight - kg 163.6000 {} Normal (applies to 163.6000 {} [place] non-numeric results) [facility] on height - cm Normal (applies to {} [place] non-numeric results) [facility] on Patient Treatment Plan of Care Planned Activity Planned Date Details Description Data Source (s) carvedilol 25 MG Oral eCW1 ( [facility]) carvedilol 25 MG Oral eCW1 ( [facility] ) Losartan Potassium 100 MG eC W1 ([facility])
[2020-05-14 13:01] VITALS: BMI 38.2
[~2020-05-16 04:20] MED LIST changes: -ACETAMINOPHEN 325 MG TABLET (FP) PO PRN; +BSS (NA/CA/MG/K) BALANCED SALT SOLUTION OPHTH SOLN 15 ML BOTTLE OS ONE; +CHONDROITIN SU A/HYALUR SOD 1 KIT IO ONE; +EPINEPHrine/PF 1 MG/1 ML (1:1,000) AMPULE SQ ONE; +LIDOCAINE HCL 1% PRESERVATIVE FREE - 30ML VIAL IO ONE; +POVIDONE-IODINE 5% OPHTHALMIC PREP 30 ML SOLUTION OS ONE; +TETRACAINE 0.5% OPHTH SOLN 2 ML BOTTLE OS ONE; +TOBRAMYCIN/DEXAMETHASONE OPHTH. OINTMENT 1 TUBE OS ONE; -TOBRAMYCIN/DEXAMETHASONE OPHTH. OINTMENT 1 TUBE TP ONE
--- OUTSIDE RECORDS SUMMARY | 2020-05-16 04:24 | XMS ---
:1955 Author Organization [facility] Support Name Relationship Address Phone [employer] Unavailable [address] [place] [address] UE, UNEMPLOYED Unavailable Unavailable Unavailable N/[place] [address] [place] [address] UE Unavailable Unavailable Unavailable JACKELIN LEWIS BROTHER [address] [place] [address] Re-disclosure Warning The records that you are [...] is protected by Article 27-F of the [place] State Public Health law. If you continue you may haveaccess to information: Regarding HIV / AIDS; Provided by facilities licensed or operated by the [facility] Office of Mental Health; or Provided by the [facility] Office for People With Developmental Disabilities. If such information is present, then the following [facility] mandated warning applies: This information has [...] law may result in a fine or prison sentence or both. A general authorization for the release of medical or other information is NOT sufficient authorization for further disclosure. Encounters Encounter Providers Location Date Indications Data Source(s ) [address] 01/04/2020 eCW1 (S aint Office [facility] [address] [facility] 12:00:00 AM [facility] [address] 11/07/2019 eCW1 (S [facility] Office [facility] 12:00:00 [facility] [address] 08/17/2019 eCW1 (S a[facility] Office [facility] [address] [facility] 12:00:00 [facility] [address] 08/03/2019 eCW1 (S a[facility] Office [facility] [address] [facility] 12:00:00 AM [facility] [address] 05/18/2019 eCW1 (S a[facility] Office [facility] [address] [facility] 12[facility]00:00 [facility] [address] 05/02/2019 eCW1 (S a[facility] Office [facility] [address] [facility] 12:00:00 [facility] [address] 03/24/2019 eCW1 (S [facility] Office [address] [facility] 12:00:00 [facility] Insurance Providers Payer name Policy type Policy ID Covered Covered democrat's Policy P bessy / Coverage democrat ID relationship to Odom Inf ormation type odom HUMANA GOLD [id number] S [id number] PLUS PLAN MEDICARE [id number] SP [id number] HUMANA O [id number] 01 [id number] M [id number] 01 [id number] HUMANA GOLD [id number] S [id number] PLUS PLAN MEDICARE [id number] S [id number] A Problems, Conditions, and Diagnoses Code Display Name Description Problem Type Effective Dates Data Source(s) I10 [id number] Essential Problem 03/24/2019 eCW1 ([facility] hypertension 12:00:00 AM [facility]) Surgeries/Procedures Procedure Description Date Indications Data Source(s) ECG ROUTINE ECG 08/17/2019 eCW1 ([facility] W/LEAST 12 LDS W/I&R 12:00:00 AM [facility]) Vital Signs ID Date Data Source UNK Name Value Range Interpretation Code Description Data Source(s) Diastolic blood 85 mm[Hg] 85 mm[Hg] eCW1 (Dave nt pressure [facility]) Systolic blood 135 mm[Hg] 135 mm[Hg] eCW1 (Chivo t pressure [facility]) Heart rate 59 /min 59 /min eCW1 ([facility]) Body mass index 41.15 kg/m2 41.15 kg/m2 eCW1 (S aint (BMI) [Ratio] [facility]) Body weight 255 [lb_av] 255 [lb_av] eCW1 ([facility]) Body height 66 [in_us] 66 [in_us] eCW1 ([facility])
[2020-05-16] MEDS ORDERED: TETRACAINE 0.5% OPHTH SOLN 2 ML BOTTLE ONE (06:38)
[2020-05-16] MEDS ORDERED: EPINEPHrine/PF 1 MG/1 ML (1:1,000) AMPULE ONE ×2 (06:38→08:24)
[2020-05-16] MEDS ORDERED: LIDOCAINE HCL/PF 1% SDV 5ML VIAL ONE (06:38)
[2020-05-16] MEDS ORDERED: TOBRAMYCIN/DEXAMETHASONE OPHTH. OINTMENT 1 TUBE ONE (06:38)
[2020-05-16] MEDS ORDERED: POVIDONE-IODINE 5% OPHTHALMIC PREP 30 ML SOLUTION ONE (06:38)
[2020-05-16] MEDS ORDERED: CHONDROITIN SU A/HYALUR SOD 1 KIT ONE (06:42)
[2020-05-16] MEDS ORDERED: TROPICAMIDE 1% OPHTH SOLN 15 ML BOTTLE ONE (07:07)
[2020-05-16] MEDS ORDERED: ACETAMINOPHEN 325 MG TABLET (FP) PO PRN (07:19)
[2020-05-16] MEDS ORDERED: KETOROLAC TROMETHAMINE 0.5% EYE DROP 1 DROP DROPS OP SCH (07:30)
[2020-05-16] MEDS ORDERED: CIPROFLOXACIN HCL 0.3% OPHTH 2.5ML BOTTLE OP SCH (07:30)
[2020-05-16] MEDS: DICLOFENAC SODIUM 0.1% OPHTHALMIC 2.5ML BOTTLE ONE ×3 (07:50→08:00)
[2020-05-16] MEDS: TROPICAMIDE 1% OPHTH SOLN 15 ML BOTTLE OP SCH ×3 (07:50→08:00)
[2020-05-16] MEDS: PHENYLEPHRINE 2.5% OPHTH SOLN 15 ML BOTTLE OP SCH ×3 (07:50→08:00)
[2020-05-16] MEDS: CIPROFLOXACIN HCL 0.3% OPHTH 2.5ML BOTTLE ONE ×3 (07:50→08:00)
[2020-05-16] MEDS ORDERED: MIDAZOLAM HCL 2 MG/2 ML SINGLE DOSE VIAL ONE (07:58)
--- NOTE | 2020-05-16 08:18 | HP ---
- Patient Scheduled date of Surgery: 05/16/20 Scheduled Surgical Procedure: Phacoemulsification and cataract extraction with PCIOL Affected Eye: Left Chief Complaint (Indication for surgery): Decreased vision affecting ADLs - Ocular History Other Eye History: Other (allergic conjunctivitis, lattice degeneration) Eye Medications: lastacaft, cipro, bromsite Previous Eye Surgery: s/p ce/pciol OD s/p retinopexy os - Medical History Illnesses: Congestive Heart Failure, Hypertension, Diabetes, Other (ckd, BPH, depression s/p gastric sleeve, defibrillator) Current Medications: Ambulatory Orders Aspirin [ASA -] 81 mg PO DAILY 01/02/16 Atorvastatin Ca [Lipitor] 80 mg PO HS 01/02/16 Carvedilol [Coreg -] 37.5 mg PO BID 01/02/16 Tamsulosin HCl [Flomax] 0.4 mg PO DAILY 01/02/16 Valsartan [Diovan] 160 mg PO DAILY 01/02/16 Bupropion HCl [Wellbutrin Xl] 300 mg PO DAILY 10/07/16 Escitalopram Oxalate [Lexapro -] 15 mg PO HS 10/07/16 Calcium Carb, Citrate/Vit D3 [Calcium + D3 ER Tablet] 1 each PO DAILY 05/14/20 Multivitamin [Multiple Vitamins] 1 each PO DAILY 05/14/20 Omeprazole 20 mg PO DAILY 05/16/20 Allergies/Adverse Reactions: Allergies Allergy/AdvReac Type Severity Reaction Status Date / Time Penicillins Allergy Intermediate Rash Verified 02/20/16 14:58 Ocular Examination - Best Corrected Visual Acuity Distance: Right eye: 20/20-2 Distance: Left eye: 20/70 - External/Slit Lamp Examination Abnormalities: nv nasally , papillae - Intraocular Pressure Intraocular Pressure (mm/Hg) - Right eye: 15 Intraocular Pressure (mm/Hg)-Left eye: 15 - Lens Lens: 2+ NS vacuoles - Vitreous/Retina Vitreous/Retina: C:D 0.4 m/v/p wnl - Special Examination M - Right eye: -3.25 M - Left eye: -7.50 K - Right eye: 41/41.25 K - Left eye: 41.75/42 x 145 AL - Right eye: 27.9 AL - Left eye: 27.53 IOL bag: +14.5 AUOOTO for myopia IOL sulcus: +14.0 MN60 AC IOL AC: 12.0 MTA 4UO - Impression Impression: Cataract Left Eye - Plan Plan: Phacoemulsification and cataract extraction - IOL Left eye Post-hospital care will be provided in office on: 05/17/20
--- NOTE | 2020-05-16 08:19 | HP ---
History & Physical Update - History History: Change (see notes) (H and p reviewed by Dr. Xavier Du, 04/24/2020- patient has gerd and prabhakar's esophagus and sleep apnea) - Physical Physical: No Change - Assessment Assessment: No Change - Plan Plan: No Change
[2020-05-16] MEDS ORDERED: TETRACAINE 0.5% OPHTH SOLN 2 ML BOTTLE OS ONE (08:29)
[2020-05-16] MEDS ORDERED: POVIDONE-IODINE 5% OPHTHALMIC PREP 30 ML SOLUTION OS ONE (08:32)
[2020-05-16] MEDS ORDERED: LIDOCAINE HCL 1% PRESERVATIVE FREE - 30ML VIAL IO ONE (08:37)
[2020-05-16] MEDS ORDERED: CHONDROITIN SU A/HYALUR SOD 1 KIT IO ONE (08:37)
[2020-05-16] MEDS ORDERED: BSS (NA/CA/MG/K) BALANCED SALT SOLUTION OPHTH SOLN 15 ML BOTTLE OS ONE (08:37)
[2020-05-16] MEDS ORDERED: EPINEPHrine/PF 1 MG/1 ML (1:1,000) AMPULE SQ ONE (08:45)
[2020-05-16] MEDS ORDERED: TOBRAMYCIN/DEXAMETHASONE OPHTH. OINTMENT 1 TUBE OS ONE (08:55)
--- NOTE | 2020-05-16 09:11 | OP ---
Ophthalmology Operative Note Pre-Operative Diagnosis: Cataract (NS) Affected Eye: Left Operation: Phacoemulsification and cataract extraction with PCIOL Findings: Nuclear sclerotic cataract left eye Post-Operative Diagnosis: Same as Pre-op Computational Sciences Professor: Ashley Anesthesiologist: Merced Mack Anesthesia: Topical Specimens Removed: none Estimated blood loss: < 1cc Drains & Tubes with Location: none Operative Report Dictated: Yes
[2020-05-16 09:18] VITALS: TEMP 97.7
--- NOTE | 2020-05-16 10:26 | OP ---
DATE OF OPERATION: DATE OF DICTATION: 05/16/2020 PREOPERATIVE DIAGNOSIS: Nuclear sclerotic cataract, left eye. POSTOPERATIVE DIAGNOSIS: Nuclear sclerotic cataract, left eye. PROCEDURE: Phacoemulsification and cataract extraction with insertion of posterior chamber intraocular lens, left eye. SURGEON: Louise Case MD SAP SOLUTION MANAGER CONSULTANT: None. ANESTHESIA: Topical. ANESTHESIOLOGIST: Merced Mack CRNA OPERATIVE PROCEDURE: The patient received tetracaine eye drops and was gently sedated and prepped and draped in the usual sterile fashion so as to expose only the left eye. Ophthalmic Betadine was instilled into the inferior fornix and lashes were taped out of the surgical field. An eyelid speculum was placed into the left eye. Paracentesis was made in inferior temporal clear cornea at the limbus. Then 1 mL of lidocaine 1% was injected into the anterior chamber and then 1 mL of dilute epinephrine 1:10,000 was injected into the anterior chamber to improve pupillary dilation as the patient was on Flomax. Viscoelastic material was instilled into the anterior chamber via the paracentesis. A 2.4-mm keratome blade was then used to create the main incision in temporal clear cornea at the limbus. A continuous curvilinear capsulorrhexis was performed using a cystotome and Utrata forceps. Hydrodissection of the lens cortex was performed using BSS on a cannula until the nucleus was noted to be freely rotating. The phacoemulsification tip was then inserted via the main wound and used to scope 2 perpendicular grooves into the lens nucleus. The nucleus was cracked into 4 quadrants. Each quadrant was lifted out of the capsule into the iris plane and individually phacoemulsified. The remaining cortical material was then aspirated using the irrigation/aspiration port. The capsular bag was inflated using Provisc and a preloaded AcrySof lens model [id number] power +14.5 diopters was injected into the capsular bag. It was centered using a S[place] hook. The residual viscoelastic material was removed from the anterior chamber using irrigation and aspiration. The wound edges were hydrated using BSS. The wound was tested for leakage and was found to be watertight. Tobradex ointment was placed in the eye, and the speculum was removed from the eye, and the eyelid was closed. A sterile dressing and shield were placed over the eye. The patient was transferred to the recovery room in stable condition, told to follow up in 1 day. LOUISE CASE M.D. [id number]
[2020-05-16 10:58] VITALS: BP 112/69; PULSE 66
[2020-05-16] MEDS ORDERED: ONDANSETRON 4 MG/2 ML VIAL IVPUSH PRN (11:08)
[2020-05-16] MEDS ORDERED: LACTATED RINGERS SOLUTION 1,000 ML IV SCH (11:15)
== END 2020-05-16 12:00 | disposition home or self-care (01) ==
LOC: JASU-SURG 04:20
PROVIDERS: ATTEND Ophthalmology
PROC: 08RK3JZ Replacement of Left Lens with Synthetic Substitute, Percutaneous Approach (ICD-10-PCS; principal; 2020-05-16 08:30)
DX: H25.12 Age-related nuclear cataract, left eye (principal)

== ENCOUNTER 2023-05-20 07:31 | Day surgery (SDC) | payer OTHER ==
[2023-05-17 12:43] VITALS: BMI 44.4
[2023-05-20] MEDS ORDERED: PROPOFOL 20 ML ONE (08:50)
[2023-05-20 09:26] VITALS: RESP 16; TEMP 97
[2023-05-20 09:27] VITALS: BP 135/71; PULSE 69
== END 2023-05-20 09:53 | disposition home or self-care (01) ==
LOC: FASU-ENDO 07:31
PROVIDERS: ATTEND Internal Medicine Gastroenterology
PROC: 0DB78ZX Excision of Stomach, Pylorus, Via Natural or Artificial Opening Endoscopic, Diagnostic (ICD-10-PCS; 2023-05-20)
PROC: 0DB38ZX Excision of Lower Esophagus, Via Natural or Artificial Opening Endoscopic, Diagnostic (ICD-10-PCS; principal; 2023-05-20 08:51)
DX: K29.50 Unspecified chronic gastritis without bleeding (principal); K44.9 Diaphragmatic hernia without obstruction or gangrene; K22.70 Barrett's esophagus without dysplasia; Z98.84 Bariatric surgery status
CPT/HCPCS: 82962; 88305-TC; 88342-TC